=== PATIENT | female | born 1990 | race Caucasian/White ===

== ENCOUNTER 2022-04-21 13:50 | Outpatient (CLI) | payer OTHER, SELFPAY ==
[2022-04-21 14:39] LABS: Hematocrit 38.1 % (37.0-47.0); Hemoglobin 13.2 g/dL (12.0-15.0); Mean Corpuscular HGB Conc 34.6 g/dl (32-36); Mean Corpuscular Hemoglobin 33.2 pg (26-34); Mean Corpuscular Volume 95.7 fl (80-100); Mean Platelet Volume 11.2 fl (7.4-10.4); Platelet Count Result 173 k/mm3 (150-375); Red Blood Count 3.98 M/mm3 (4.2-5.4); Red Cell Distribution Width 13.2 % (11.5-14.5); White Blood Count 10.1 K/mm3 (4.5-10.0)
[2022-04-22 16:15] LABS: Rapid Plasma Reagin Non-Reactive (NonReactive)
== END 2022-04-21 13:51 | disposition home or self-care (01) ==
PROVIDERS: PCP Internal Medicine; Visit Provider Obstetrics & Gynecology
DX: Z34.93 Encounter for supervision of normal pregnancy, unspecified, third trimester (principal); Z3A.00 Weeks of gestation of pregnancy not specified
CPT/HCPCS: 36415; 85027; 86592; 86850; 86900; 86901

== ENCOUNTER 2022-04-21 13:56 | Outpatient (CLI) | payer OTHER, SELFPAY ==
[2022-04-21 14:39] LABS: Basophils Percent Auto 0.4 % (0.2-1.2); Eosinophils Absolute Auto 0.1 K/mm3 (0-0.3); Eosinophils Percent Auto 0.8 % (0-4.4); Hematocrit 39.6 % (37.0-47.0); Hemoglobin 13.5 g/dL (12.0-15.0); Immature Granulocyte Absolute 0.08 K/mm3 (0.00-0.031); Immature Granulocyte Percent A 0.8 % (0-0.5); Lymphocytes Percent Auto 17.8 % (18.3-44.2); Mean Corpuscular HGB Conc 34.1 g/dl (32-36); Mean Corpuscular Hemoglobin 33.6 pg (26-34); Mean Corpuscular Volume 98.5 fl (80-100); Monocytes Absolute Auto 0.7 K/mm3 (0.1-0.6); Monocytes Percent Auto 6.6 % (2.6-8.5); Neutrophils Absolute Auto 7.5 K/mm3 (1.3-6.7); Neutrophils Percent Auto 73.6 % (45.5-73.1); Platelet Count Result 176 k/mm3 (150-375); Red Blood Count 4.02 M/mm3 (4.2-5.4); Red Cell Distribution Width 13.4 % (11.5-14.5); White Blood Count 10.1 K/mm3 (4.5-10.0)
[2022-04-21 14:46] LABS: Alanine Aminotransferase 25 U/L (6-35); Alkaline Phosphatase 101 U/L (38-126); Anion Gap 6 mmol/L (8-16); Aspartate Amino Transferase 25 U/L (14-36); Bilirubin,Total 0.5 mg/dL (0.2-1.3); Blood Urea Nitrogen 7 mg/dL (7-17); Calcium 8.5 mg/dL (8.4-10.2); Carbon Dioxide 24 mmol/L (22-30); Chloride 102 mmol/L (98-107); Estimated Glomerular Filt Rate > 60; Glucose 110 mg/dL (65-110); Potassium 3.7 mmol/L (3.4-5.0); Sodium 132 mmol/L (137-145)
[2022-04-23 12:23] LABS: NIL 0.03 IU/mL; Quantiferon TB Plus, 1T NEGATIVE (NEGATIVE); TB1-NIL 0.04 IU/mL; TB2-NIL 0.01 IU/mL
== END 2022-04-21 13:57 | disposition home or self-care (01) ==
LOC: ANHLAB 13:59
PROVIDERS: PCP Internal Medicine
DX: Z79.899 Other long term (current) drug therapy (principal)
CPT/HCPCS: 36415; 80048; 80076; 85025; 85027; 86480; 86592; 86850; 86900; 86901

== ENCOUNTER 2022-04-22 05:03 | Inpatient (IN) | payer OTHER, SELFPAY ==
[2022-04-22] VITALS (60 sets, daily range): BP systolic 77–118; BP diastolic 42–70; PULSE 56–114; RESP 12–20; TEMP 36–37.1; O2SAT 96–100; BMI 27.6
--- NOTE | 2022-04-22 05:25 | LDADM ---
This patient, Bronwyn Trujillo, was admitted to Labor/Delivery/Recovery 120 on 04/22/22 at 05:03. Plans for labor, pain management and were discussed with patient. Patient/family oriented to hospital policies and general routines including ID bracelet, bed and alarms, visiting hours, pain management, procedures, bathroom and other care routines, personal items, smoking policy, room service/diet and guest tray routines, infant security routines, and visiting hours. Patient/Family are encouraged to report perceived risks to care and to ask questions if they do not understand what they are told or what they should do. See OBIX for further documentation.
[2022-04-22] MEDS: LACTATED RINGERS 1,000 ML 125 ML IV CONT ×2 (05:45→06:15)
--- NOTE | 2022-04-22 06:45 | PC.NURSE ---
Dr. Montilla at bedside to confirm presentation. Vertex position noted but patient still requests primary section due to a 4th degree laceration with last delivery.
--- NOTE | 2022-04-22 06:48 | P.PNAN_ITS ---
Anes - Initial Pre Proc Eval Procedure: Operation Date: 04/22/22 07:30 Proposed Procedures p Section - Rosa M Montilla MD Date/Time: 04/22/22 06:48 Surgeon: Rosa M Montilla MD Pre Op Diagnosis: C/S Patient Data Age: 31 Gender: F Height: 1.68 m Weight: 77.5 kg Last Vital Signs Temp 36.5 C 04/22/22 05:53 Pulse 81 04/22/22 05:50 BP 118/69 04/22/22 05:50 O2 Del Method Room Air 04/22/22 05:22 Allergies Allergy/AdvReac Type Severity Reaction Status Date / Time Penicillins Allergy Severe Hives Verified 04/08/22 16:01 Home Medications Medication Instructions Recorded Confirmed Type sertraline 25 mg tablet 25 mg PO DAILY 09/26/21 03/25/22 History prenat.vits,thomas,[id number] 1 tablet PO DAILY 02/24/22 03/25/22 History Patient hx anesthesia problems: none Family hx anesthesia problems: none Results Review: All pre-operative results and documents have been reviewed as part of the pre- operative evaluation. [facility] Past Medical History Medical History Stomach ulcer Surgical History Surgical History History of augmentation mammoplasty History of colposcopy Family History Family History Mother Diabetes mellitus Grandparent Cerebrovascular accident Social History Social History Smoking status: Never smoker Second hand tobacco smoke exposure: No Alcohol intake: never Substance use: never Substance use type: does not use Lack of Transportation: No Lack of Food: Never True Current Housing: I Have Housing Concerned About Future Housing: No Difficulty Paying Gas/Electric Bills: No Difficulty Paying for Meds: No Currently Unemployed: No Education: Bachelor's Degree Difficulty w/ Childcare or Family Care: No Gender identity (if verbalized by the patient): Female Spiritual care concerns: No Anes - Eval Final PreProcedure Day of Procedure 12/28/22 06:48 Patient weight: overweight Heart: regular rate and rhythm Lungs: clear to auscultation and normal air movement Airway: Mallampati scale class II Neurological: alert and oriented Last oral intake: >/= 8 hours ASA classification: II Emergent: no Anesthetic plan: proceed Anesthesia type and monitoring: regional spinal and standard monitoring Results Review: All pre-operative results and documents have been reviewed as part of the pre- operative evaluation. Informed Consent: The patient's anesthetic plan and its attendant risks and benefits were discussed with the patient/family/POA. Questions were solicited and answers provided to the satisfaction of the patient/family/POA.
--- NOTE | 2022-04-22 06:51 | PM.IMHP ---
H&P: HPI History of Present Illness Date/Time: 04/22/22 06:40 Chief Complaint: Narrative: Bronwyn is a 31yo @ 39.3wks who presents for primary section due to malpresentation. She reports that even though her daughter flipped, she wants to proceed with section as she has a h/o large perineal laceration and multiple rectal issues for approximately 9 months with her last delivery. She has had regular care. She reports good movement. No regular contractions. No VB or LOF. Her is complicated by: - Daughter with congenital heart defect-- s/p normal echo - FOB w/ kidney malformation-- s/p normal anatomy US w/ MFM - Works at chemical plant (handler); but all 4 chemicals cause defect-- work note provided to avoid work - Psoriasis on immune modulators (derm switched her to meds safe in preg). - Recent h/o stomach ulcer - BREECH malpresentation - possible h/o 4th degree lac - GBS Positive Review of Systems Constitutional: Constitutional: Denies chills and Denies fever(s) Eyes: Eyes: Denies change in vision Cardiovascular: Cardiovascular: Denies chest pain Respiratory: Respiratory: Denies dyspnea Gastrointestinal: Gastrointestinal: Denies abdominal pain, Denies nausea and Denies vomiting Genitourinary: Genitourinary: Denies vaginal discharge Neurologic: Denies dizziness and Denies headache(s) Psychiatric: Psychiatric: Denies anxiety and Denies depression [facility] Past Medical History Medical History Stomach ulcer Surgical History Surgical History History of augmentation mammoplasty History of colposcopy Family History Family History Mother Diabetes mellitus Grandparent Cerebrovascular accident Social History Social History Smoking status: Never smoker Second hand tobacco smoke exposure: No Alcohol intake: never Substance use: never Substance use type: does not use Lack of Transportation: No Lack of Food: Never True Current Housing: I Have Housing Concerned About Future Housing: No Difficulty Paying Gas/Electric Bills: No Difficulty Paying for Meds: No Currently Unemployed: No Education: Bachelor's Degree Difficulty w/ Childcare or Family Care: No Gender identity (if verbalized by the patient): Female Spiritual care concerns: No Meds Home Medications and Allergies Home Medications Medication Instructions Recorded Confirmed Type sertraline 25 mg tablet 25 mg PO DAILY 09/26/21 03/25/22 History prenat.vits,thomas,[id number] 1 tablet PO DAILY 02/24/22 03/25/22 History Allergies Allergy/AdvReac Type Severity Reaction Status Date / Time Penicillins Allergy Severe Hives Verified 04/08/22 16:01 Exam Const: General: cooperative, healthy appearing, comfortable and no acute distress Resp: Effort & Inspection: normal respiratory effort Cardio: Rate: regular rate GI: Inspection: normal to inspection GI Palp: No abdominal tenderness : Other: FHT's: 130's/ mod delmy/ + accels/ no decels - cat 1 TOCO: irregular ctx's q6-8min Presentation: cephalic confirmed on bedside US Membranes: intact, GBS positive Skin: General skin exam: normal color Neuro: General: patient oriented x3 Extrem: General: normal to inspection Psych: Appearance: grossly normal Affect: normal affect Attitude: cooperative Assessment and Plan Assessment and plan (1) Breech presentation: Qualifiers: Fetus number: single or unspecified fetus Qualified Code(s): O32.1XX0 - Maternal care for breech presentation, not applicable or unspecified Code(s): O32.1XX0 - Maternal care for breech presentation, not applicable or unspecified Status: Acute (2) :
--- NOTE | 2022-04-22 06:51 | WPDHPUPDATE1 ---
History and Physical Update Update Date/Time: 04/22/22 06:51 History and Physical has been reviewed, including an updated exam of the patient. There are NO changes in the patient's condition. Risks, benefits, and alternatives have been discussed and questions answered. Patient agrees to proceed with procedure.
--- NOTE | 2022-04-22 08:06 | P.PCNOB_ITS ---
OB - Delivery Note Procedure Delivery date: 04/22/22 Procedure: Procedures Operation Date: 04/22/22 07:30 <No data on this case meets the specified criteria> Route of delivery: Quantitative Blood Loss (ml): 1,130 Anesthesia type: Spinal Disposition: Floor [place] Baby Date of : 04/22/22 Time of : 07:29 Weeks of gestation at delivery: 39 (.3) Infant gender: Female Weight (pounds): 8 Weight (ounces): 0 presentation: vertex Placenta delivery description: Manual Removal Cord Vessel Description: 3 Vessels score one minute: 8 score five minutes: 9 Narrative: She was counseled on all risks and benefits in detail and still wanted to proceed with primary section even though her daughter was confirmed cephalic. She was taken to the operating room where spinal was placed. She was then prepped and draped in the normal sterile fashion. She received 2g Ancef and a time out was performed. A Pfannenstiel incision was made in the skin and carried down to the underlying fascia. The fascia was nicked on either side of the midline and the fascial incision was extended laterally and superiorly bluntly. The fascia was then elevated using Daja clamps and the underlying rectus muscles were dissected off the fascia, superiorly and inferiorly. The rectus muscles were then in the midline and the peritoneum was entered bluntly. Once adequate exposure was obtained, a Mobius self retractor was placed within the abdomen. A low transverse incision was made on the lower uterine segment and clear fluid was noted. The occiput was brought to the hy sterotomy and the head was not delivered as the incision was noted to be on the smaller side. The Mobius retractor was removed from the abdomen. A Kiwi vacuum was placed and with one pull, the head was delivered. Nuchal cord was noted and reduced. The shoulders and body then followed without complications. The infant had spontaneous cry and the mouth and nose were bulb suctioned. The cord was clamped and cut and the infant was handed off to the awaiting pediatric nurse. A segment of the cord was collected for cord gases. The remaining cord blood was collected for typing. With pitocin infusing, the placenta delivered with by manual removal. The uterus was then cleared out of all clots and debris using a clean, moist lap. The hysterotomy was then repaired in a running, interlocking fashion using 0 Vicryl. A second layer imbricating suture was then made using 0 Vicryl. An additional figure of eight 0 Vicryl stitch was placed in the middle of the hysterotomy, and it was then found to be hemostatic and good uterine tone was noted. There were 3 large venous bleeders that lead to heavy bleeding, which resolved with closure of the hysterotomy. The bilateral adnexa were examined and found to be normal. The pelvis was cleared of all clots and fluid. The peritoneum, muscle, and fascia were examined and made hemostatic with bovie cautery. The fascia was then repair ed using a 0 Vicryl suture in a running fashion. The subcutaneous tissue was then irrigated and made hemostatic with bovie cautery. The skin was then closed using 4-0 Monocryl in a running subcuticular fashion. Sponge, lap, needle and instrument counts were correct at the end of the procedure x2. The patient tolerated the procedure well and was taken to recovery in a stable condition. [facility] Delivery Billing Delivery Delivery: Delivery Charge
[2022-04-22] MEDS: OXYTOCIN 30 UNITS/NS 500 ML 30 UNITS/500 ML BAG 125 UNITS IV CONT (09:17)
--- NOTE | 2022-04-22 10:45 | OBPPTRN ---
Patient transferred to post room #287 via stretcher. Support person present. Oriented to unit, room, information board, rooming in, admission packet and security measures. Patient verbalizes understanding.
[2022-04-22] MEDS: DEXTROSE 5%/0.45% SOD CHL 1,000 ML 125 ML IV CONT (13:05)
[2022-04-22] MEDS: KETOROLAC 30 MG/ML VIAL (*BKC) IV PUSH ×2 (13:06→19:59)
[2022-04-22] MEDS: DOCUSATE SODIUM 100 MG CAPSULE PO (18:44)
[2022-04-23 03:40] VITALS: BP 95/50; PULSE 82; RESP 18; TEMP 36.7
[2022-04-23] MEDS: HYDROcodone/acetaminophen (*CRX) 5-325 MG TABLET 1 TAB PO ×6 (03:54→22:55)
[2022-04-23] MEDS: IBUPROFEN 600 MG TABLET PO ×3 (03:54→19:34)
[2022-04-23 05:23] LABS: Basophils Percent Auto 0.3 % (0.2-1.2); Eosinophils Percent Auto 0.3 % (0-4.4); Hematocrit 28.4 % (37.0-47.0); Hemoglobin 9.5 g/dL (12.0-15.0); Immature Granulocyte Absolute 0.08 K/mm3 (0.00-0.031); Immature Granulocyte Percent A 0.7 % (0-0.5); Lymphocytes Absolute Auto 1.56 K/mm3 (0.9-3.2); Lymphocytes Percent Auto 13.3 % (18.3-44.2); Mean Corpuscular HGB Conc 33.5 g/dl (32-36); Mean Corpuscular Hemoglobin 33.5 pg (26-34); Monocytes Absolute Auto 0.6 K/mm3 (0.1-0.6); Monocytes Percent Auto 5.3 % (2.6-8.5); Neutrophils Absolute Auto 9.4 K/mm3 (1.3-6.7); Neutrophils Percent Auto 80.1 % (45.5-73.1); Platelet Count Result 148 k/mm3 (150-375); Red Blood Count 2.84 M/mm3 (4.2-5.4); Red Cell Distribution Width 13.6 % (11.5-14.5); White Blood Count 11.7 K/mm3 (4.5-10.0)
[2022-04-23] MEDS: POLYSACCHARIDE IRON COMPLEX 150 MG CAPSULE PO ×2 (07:05→16:22)
[2022-04-23] MEDS: DOCUSATE SODIUM 100 MG CAPSULE PO ×2 (07:06→16:22)
[2022-04-23] MEDS: MULTIVIT/MIN/PREN/FOL AC/IRON TABLET 1 TAB PO (07:06)
[2022-04-23 08:20] VITALS: BP 99/50; PULSE 64; RESP 18; TEMP 36.9; O2SAT 99
--- NOTE | 2022-04-23 08:25 | PM.OBPNVD ---
OB - PN: Subj Subjective Date/time seen: 04/23/22 08:06 Narrative: POD#1 Bronwyn reports doing well today. 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 Her pain is controlled. She is tolerating regular diet, passing gas, and ambulating without issues. Her sifuentes was removed 3-4 hours ago; no spontaneous void yet. She denies any issues with her incision. She is breast feeding. OB - PN: Obj Data Labs 04/23/22 03:58 Labs: Laboratory Results - last 24 hr 04/23/22 03:58 WBC 11.7 H RBC 2.84 L Hgb 9.5 L D Hct 28.4 L MCV 100.0 MCH 33.5 MCHC 33.5 RDW 13.6 Plt Count 148 L MPV 11.0 H Immature Gran % (Auto) 0.7 H Neut % (Auto) 80.1 H Lymph % (Auto) 13.3 L Foster % (Auto) 5.3 Eos % (Auto) 0.3 Baso % (Auto) 0.3 Lymph # (Auto) 1.56 Foster # (Auto) 0.6 Eos # (Auto) 0.0 Baso # (Auto) 0.0 Abs Immat Gran (auto) 0.08 H Absolute Neuts (auto) 9.4 H Absolute Nucleated RBC 0.0 Nucleated RBC % 0.0 OB - PN A/P Assessment and Plan (1) S/P primary low transverse : Code(s): Z98.891 - History of uterine scar from previous surgery Status: Acute Plan day: 1 Plan: routine care Comments: - repeat CBC at noon to show stability - awaiting spontaneous void; if none by 6 hours, sifuentes to be removed Time Spent With Patient Time: Total time spent is greater than 50% in coordination of care (as documented) at patient's floor/unit and/or counseling patient: Review of Systems Constitutional: Constitutional: Denies chills, Denies fever(s) and Denies headache(s) Eyes: Eyes: Denies change in vision ENT: Denies dizziness and Denies headache(s) Cardiovascular: Cardiovascular: Denies chest pain, Denies palpitations and Denies dyspnea Respiratory: Respiratory: Denies cough and Denies dyspnea Gastrointestinal: Gastrointestinal: Denies nausea and Denies vomiting Genitourinary: Comments: normal bleeding Neurologic: Denies dizziness and Denies headache(s) Endocrine: Endocrine: Denies palpitations Exam Const: General: cooperative, healthy appearing, comfortable and no acute distress Orientation/consciousness: patient oriented x3 Resp: Effort & Inspection: normal respiratory effort Auscultation: clear to auscultation bilaterally Cardio: Rate: regular rate GI: Inspection: non-distended and incision (covered with clean dressing) GI Palp: Yes abdominal tenderness (appropriate) and Yes Soft to palpation Auscultation: normal bowel sounds : Other: fundus firm Skin: General skin exam: normal color Neuro: General: patient oriented x3 Extrem: General: normal to inspection Psych: Appearance: grossly normal Affect: normal affect Attitude: cooperative
[2022-04-23 12:20] LABS: Hematocrit 27.3 % (37.0-47.0); Hemoglobin 9.4 g/dL (12.0-15.0); Mean Corpuscular HGB Conc 34.4 g/dl (32-36); Mean Corpuscular Hemoglobin 34.1 pg (26-34); Mean Corpuscular Volume 98.9 fl (80-100); Mean Platelet Volume 10.9 fl (7.4-10.4); Platelet Count Result 161 k/mm3 (150-375); Red Blood Count 2.76 M/mm3 (4.2-5.4); Red Cell Distribution Width 13.5 % (11.5-14.5); White Blood Count 11.1 K/mm3 (4.5-10.0)
--- NOTE | 2022-04-23 12:42 | WPDANLDPN2 ---
Anes-Prog Note L&D Date/Time: 04/23/22 12:42 Neuro status: Neuro function grossly intact. Vital Signs: Last Vital Signs Temp 36.9 C 04/23/22 08:20 Pulse 64 04/23/22 08:20 Resp 18 04/23/22 08:20 BP 99/50 L 04/23/22 08:20 Pulse Ox 99 04/23/22 08:20 O2 Del Method Room Air 04/23/22 07:15 Pain score (VAS): 0 I/O: Intake & Output 04/22/22 04/23/22 04/23/22 23:59 07:59 15:59 Intake Total 2300 1000 Output Total 2400 1200 750 Balance -100 -200 -750 Patient feedback: Patient satisfied with anesthetic care.
--- NOTE | 2022-04-23 12:43 | WPDANLDNPN2 ---
Anes-Prog Note L&D-Neuraxial Date/Time: 04/23/22 12:43 Patient feedback: Patient satisfied with post-operative pain management.
[2022-04-23 19:59] VITALS: BP 107/44; PULSE 80; RESP 18; TEMP 37.3; O2SAT 99
[2022-04-24] MEDS: HYDROcodone/acetaminophen (*CRX) 5-325 MG TABLET 1 TAB PO ×3 (03:18→14:02)
[2022-04-24] MEDS: IBUPROFEN 600 MG TABLET PO ×2 (03:19→09:07)
[2022-04-24] MEDS: POLYSACCHARIDE IRON COMPLEX 150 MG CAPSULE PO (08:09)
[2022-04-24] MEDS: MULTIVIT/MIN/PREN/FOL AC/IRON TABLET 1 TAB PO (08:09)
[2022-04-24] MEDS: DOCUSATE SODIUM 100 MG CAPSULE PO (08:09)
[2022-04-24 08:35] VITALS: BP 96/55; PULSE 74; RESP 16; TEMP 37.2; O2SAT 99
--- NOTE | 2022-04-24 08:42 | P.PNOB_ITS ---
OB - PN: Subj Subjective Date/time seen: 04/24/22 08:42 Narrative: POD#2 Bronwyn reports doing well today. 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 Her pain is controlled. She is tolerating regular diet, voiding, passing gas, and ambulating without issues. She denies any issues with her incision. She is breast feeding. She would like to go home today. OB - PN: Obj Data Labs 04/23/22 12:11 Labs: Laboratory Results - last 24 hr 04/23/22 12:11 WBC 11.1 H RBC 2.76 L Hgb 9.4 L Hct 27.3 L MCV 98.9 MCH 34.1 H MCHC 34.4 RDW 13.5 Plt Count 161 MPV 10.9 H OB - PN A/P Assessment and Plan (1) S/P primary low transverse : Code(s): Z98.891 - History of uterine scar from previous surgery Status: Acute Plan day: 2 Plan: routine care and discharge home (this PM) Comments: - Pelvic rest; take meds as prescribed - Incision care/no heavy lifting - ER return precautions: fever, n/v/abd pain, bleeding, HTN Time Spent With Patient Time: Total time spent is greater than 50% in coordination of care (as documented) at patient's floor/unit and/or counseling patient: Review of Systems Constitutional: Constitutional: Denies chills, Denies fever(s) and Denies headache(s) Eyes: Eyes: Denies change in vision ENT: Denies dizziness and Denies headache(s) Cardiovascular: Cardiovascular: Denies chest pain, Denies palpitations and Denies dyspnea Respiratory: Respiratory: Denies cough and Denies dyspnea Gastrointestinal: Gastrointestinal: Denies nausea and Denies vomiting Genitourinary: Comments: normal bleeding Neurologic: Denies dizziness and Denies headache(s) Endocrine: Endocrine: Denies palpitations Exam Const: General: cooperative, healthy appearing, comfortable and no acute distress Orientation/consciousness: patient oriented x3 Resp: Effort & Inspection: normal respiratory effort Auscultation: clear to auscultation bilaterally Cardio: Rate: regular rate GI: Inspection: non-distended and incision (covered with clean dressing) GI Palp: Yes abdominal tenderness (appropriate) and Yes Soft to palpation Auscultation: normal bowel sounds : Other: fundus firm Skin: General skin exam: normal color Neuro: General: patient oriented x3 Extrem: General: normal to inspection Psych: Appearance: grossly normal Affect: normal affect Attitude: cooperative
--- NOTE | 2022-04-24 11:58 | PC.NURSE ---
Patient viewed the discharge video Mother & Baby Care, The First Two Weeks . Patient was given the opportunity and encouraged to ask questions. Patient verbalized understanding of information shared and has been given the mother/baby guide for home reference.
[2022-04-25 09:36] VITALS: BP 108/54; PULSE 88; RESP 20; TEMP 36.9; O2SAT 98
--- NOTE | 2022-04-28 08:01 | PM.OBDSVD ---
DS: Admitting Diagnosis Discharge Date 04/24/22 Admitting Diagnosis primary DS: Discharge Diagnosis Discharge Diagnosis (1) S/P primary low transverse : Code(s): Z98.891 - History of uterine scar from previous surgery Status: Acute OB - DS: Summary OB Procedures : Ultrasound OB Procedures Intrapartum: low cervical, transverse OB Procedures: : None Peripartum Data Infant Delivery Method: Section Procedures: Procedures Operation Date: 04/22/22 07:30 Actual Procedure Side Surgeon p Section Rosa M Montilla MD complications: none [place] 1: Gender: Female Disposition of : home Status at Discharge Functional status at discharge: independent ambulation Overall status at discharge: patient is back to baseline Time Spent with Patient Time attestation: Total time spent providing and/or coordinating discharge services: Time spent: Less than 30 minutes Exam Const: General: cooperative, healthy appearing, comfortable and no acute distress Orientation/consciousness: patient oriented x3 Resp: Effort & Inspection: normal respiratory effort Auscultation: clear to auscultation bilaterally Cardio: Rate: regular rate GI: Inspection: non-distended GI Palp: No abdominal tenderness and Yes Soft to palpation Auscultation: normal bowel sounds : Other: fundus firm Skin: General skin exam: normal color Neuro: General: patient oriented x3 Extrem: General: normal to inspection Psych: Appearance: grossly normal Affect: normal affect Attitude: cooperative Discharge Plan Discharge Attending physician on discharge: Rosa M Montilla Discharging Clinician: Rosa M Montilla Anticipated Discharge Date/Time: 04/24/22 15:00 Patient Disposition: Home, Self-Care Activity: may shower, may drive after 2 weeks and pelvic rest Diet: regular Wound Care Instructions: incision open to air Discharge Instructions: Education: Mom and Baby Guide Given to: Mother Follow-Up: Call your delivering provider's office for an appointment to be seen in: 4 Weeks Mom and baby should come to the [facility] for the follow-up appointment. Appointment Date/Time: Wednesday, April 25, 2022 at 9:00 a.m. What to expect at your follow-up visit: Blood Pressure Check Physical Assessment Call [phone] if you are unable to keep your appointment time. BREAST CARE: * Wear a snug supportive bra. * For engorgement discomfort: Breast Feeding: * Apply warm moist washcloths * Express milk as needed to relieve engorgement * Wear loose clothing * For sore nipples: * Identify correct latch-on * Apply warm moist washcloths before and after nursing * Air dry nipples after nursing * May apply Lansinoh cream to nipples ABDOMINAL INCISION: (if applicable) * Allow incision to air dry * Do NOT use lotions for powders on your incision * When showering, allow soap and water to run over the incision, but do not wash incision EPISIOTOMY/PERINEAL CARE: * Change your pad frequently throughout the day * You may take sitz baths several times a day (fill your bathtub with warm water and soak for 20 minutes.) Do NOT bathe in the water * No tub baths until seen by your physician - You may shower ACTIVITY: * Rest as much as possible. * Do not exercise or lift anything heavier than your baby (such as laundry or other children.) * Avoid stairs or driving as much as possible. * Do not put anything into the vagina. No douching, tampons, or sexual activity until seen by physician. NOTIFY PHYSICIAN IF YOU HAVE ANY QUESTIONS OR IF ANY OF THE FOLLOWING SYMPTOMS OCCUR: * If your incision becomes red, swollen, or more painful than what you have experienced in the hospital. * If your vaginal bleeding becomes foul smelling. * If you
== END 2022-04-24 15:15 | disposition home or self-care (01) | DRG 788 ==
LOC: ANHLDR 05:05 → ANHOB2 10:48
PROVIDERS: Admitting Provider Obstetrics & Gynecology; PCP Internal Medicine; Visit Provider Obstetrics & Gynecology
PROC: 10D00Z1 Extraction of Products of Conception, Low, Open Approach (ICD-10-PCS; CPT 59514; principal; 2022-04-22 07:30)
DX: O32.8XX0 Maternal care for other malpresentation of fetus, not applicable or unspecified (principal); Z37.0 Single live birth; Z3A.39 39 weeks gestation of pregnancy; O99.892 Other specified diseases and conditions complicating childbirth; Z87.59 Personal history of other complications of pregnancy, childbirth and the puerperium; B95.1 Streptococcus, group B, as the cause of diseases classified elsewhere; O99.72 Diseases of the skin and subcutaneous tissue complicating childbirth; L40.9 Psoriasis, unspecified
CPT/HCPCS: 36415; 85025; 85027; A9270; J0131; J1885; J2175; J2274; J2405; J2590; J7120